=== PATIENT | female | born 1955 | race Caucasian/White ===

== ENCOUNTER 2020-04-17 09:25 | Inpatient (IN) | payer BC ==
[~2020-04-17] VITALS: Ht 165.1 cm; Wt 70.5 kg
[2020-04-17] MEDS ORDERED: MOBIC7.5 MG PO (09:43)
[2020-04-17 11:00] VITALS: BP 150/79
[2020-04-17 11:11] LABS: BASOPHILS 0.5 % (0-2); EOSINOPHILS 1.4 % (0-7); HEMATOCRIT 47.1 % (36.0-48.0); HEMOGLOBIN 15.9 g/dL (12-16); IMMATURE GRANULOCYTES 0.5 % (0-5); LYMPHOCYTES 14.3 % (15-50); MCH 30.3 pg (26.0-34.0); MCHC 33.8 g/dL (31.0-37.0); MCV 89.7 fL (80.0-100.0); MONOCYTES 6.2 % (2-11); NEUTROPHILS 77.1 % (40-80); PLATELET COUNT 241 10x3/uL (130-400); RBC 5.25 10x6/uL (4.00-5.40); RDW 12.8 % (11.5-14.5); WBC 8.7 10x3/uL (4.8-10.8)
[2020-04-17 11:22] LABS: ANION GAP 14.4 mmol/L (8-16); CALCIUM 9.5 mg/dL (8.5-10.1); CARBON DIOXIDE 26.1 mmol/L (21.0-32.0); CREATININE - SERUM 0.9 mg/dL (0.6-1.3); POTASSIUM - SERUM 4.5 mmol/L (3.5-5.1)
[2020-04-17 11:46] LABS: ALBUMIN 4.2 g/dL (3.4-5.0); BILIRUBIN - TOTAL 0.46 mg/dL (0.2-1.3); PROTEIN - SERUM 7.2 g/dL (6.4-8.2)
[2020-04-17 11:48] VITALS: BP 105/81
[2020-04-17 12:16] LABS: BACTERIA FEW /hpf (NEGATIVE); BILIRUBIN NEGATIVE (NEGATIVE); EPITHELIAL CELLS 0-5 /hpf (0-5); GLUCOSE NEGATIVE (NEGATIVE); KETONE SMALL mg/dL (NEGATIVE); NITRITE NEGATIVE (NEGATIVE); RED CELLS - URINE NONE SEEN /hpf (0-5); SPECIFIC GRAVITY 1.005 (1.005-1.020); UROBILINOGEN NORMAL (NORMAL); WHITE CELLS - URINE 0-5 /hpf (NEGATIVE)
[2020-04-17 13:45] VITALS: BP 117/72
[2020-04-17 17:10] VITALS: BP 119/70
--- NOTE | 2020-04-17 18:45 | NUR ---
I have reviewed this patient and I concur with the Shift Assessment completed by the Licensed Practical Nurse today this shift.
[2020-04-17 20:37] VITALS: BP 135/76
[2020-04-17 21:01] VITALS: Ht 165.1 cm; Wt 70.5 kg
[2020-04-18 00:50] VITALS: BP 123/60
[2020-04-18 06:22] LABS: BASOPHILS 0.1 % (0-2); EOSINOPHILS 0.1 % (0-7); HEMATOCRIT 43.9 % (36.0-48.0); HEMOGLOBIN 14.5 g/dL (12-16); IMMATURE GRANULOCYTES 0.2 % (0-5); LYMPHOCYTES 9.6 % (15-50); MCH 29.9 pg (26.0-34.0); MCV 90.5 fL (80.0-100.0); MEAN PLATELET VOLUME 10.8 fL (7.4-10.4); MONOCYTES 8.1 % (2-11); NEUTROPHILS 81.9 % (40-80); PLATELET COUNT 228 10x3/uL (130-400); RBC 4.85 10x6/uL (4.00-5.40)
[2020-04-18 06:33] LABS: WBC 12.7 10x3/uL (4.8-10.8)
[2020-04-18 06:48] VITALS: BP 109/60
[2020-04-18 06:58] LABS: ALBUMIN 3.4 g/dL (3.4-5.0); ALKALINE PHOSPHATASE 65 U/L (30-120); ALT (SGPT) 31 U/L (10-68); BILIRUBIN - TOTAL 0.47 mg/dL (0.2-1.3); CALC OSMOLALITY 281 mosm/kg (275-300); CALCIUM 8.5 mg/dL (8.5-10.1); CARBON DIOXIDE 24.5 mmol/L (21.0-32.0); CHLORIDE - SERUM 108 mmol/L (98-107); CREATININE - SERUM 0.7 mg/dL (0.6-1.3); GLUCOSE 105 mg/dL (74-106); POTASSIUM - SERUM 5.1 mmol/L (3.5-5.1); PROTEIN - SERUM 6.6 g/dL (6.4-8.2); SODIUM 141 mmol/L (136-145); eGFR NON AFRICAN AMERICAN 90 mL/min (90-120)
[2020-04-18 07:00] LABS: UREA NITROGEN 14 mg/dL (7-18)
--- NOTE | 2020-04-18 07:55 | NUR ---
PT SITTING UP IN BED CROCHETING, STATED PAIN IS SO MUCH BETTER TODAY FROM SCALE OF 0-10 PAIN IS RATED AT A 3. PT WAS ABLE TO GET HERSELF UP THIS MORNING AND USE RESTROOM WITHOUT ASSISTANCE. PT STATES SHE IS READY FOR DC AND HOPES TO BE DC THIS MORNING. NO OTHER NEEDS VOICED, CONTINUE WITH PLAN OF CARE
[2020-04-18 08:24] VITALS: BP 119/59
[2020-04-18] MEDS ORDERED: PERCOCET 10-321 EAC1 PO (10:41)
[2020-04-18] MEDS ORDERED: CYCLOBENZAPRINE10 MG PO (10:41)
--- NOTE | 2020-04-18 12:13 | NUR ---
REMOVED PT IV WITH CATHETER INTACT, PT STILL WAITING FOR BRACE, SPOUSE AT BEDSIDE, PT NOT HAPPY THAT WE ARE STILL WAITING FOR BRACE AND HAD WANTED TO BE DC BEFORE NOON. NO OTHER NEEDS VOICED, WENT OVER DC PAPERWORK AND PRESCRIPTIONS, CONTINUE WITH PLAN OF CARE
--- NOTE | 2020-04-18 12:27 | NUR ---
I have reviewed this patient and I concur with the Shift Assessment completed by the Licensed Practical Nurse today this shift.
--- NOTE | 2020-04-18 13:11 | NUR ---
PT BRACE BROUGHT BY VENITA, PT TAKEN DOWN VIA WC BY MATCHER LEATHER PARTS. NO OTHER NEEDS
== END 2020-04-18 13:11 | disposition home or self-care (01) | DRG 552 ==
LOC: D.ER 09:25 → D.MS 11:06
PROVIDERS: Family Medicine; ADMIT Internal Medicine Nephrology; ATTEND Internal Medicine Nephrology
DX: S32.011A Stable burst fracture of first lumbar vertebra, initial encounter for closed fracture (principal); W19.XXXA Unspecified fall, initial encounter; M48.061 Spinal stenosis, lumbar region without neurogenic claudication